=== PATIENT | female | born 1985 | race Caucasian/White ===

== ENCOUNTER 2018-10-05 11:18 | Emergency (ER) | payer BC, OTHER ==
[2018-10-05 11:48] VITALS: BP 134/76
--- NOTE | 2018-10-05 12:20 | UC ---
UC General HPI - HPI Summary HPI Summary: PT STATES "I HAVE HAD AN UPSET STOMACH" FOR 2 WEEKS. NO FEVER, N/V/D. STATES HAD A BM WITH TINY WHITE WORMS WHICH HER SISTER INSPECTED. SISTER TOLD HER IT WAS PIN WORMS, SISTERS SON HAD HX OF SAME. NO BLOOD IN STOOL OR FEVER. ALSO WANTS A URINE CHECK BECAUSE IT'S DARK AND MAYBE A LITTLE FOUL IN ODOR. NO FREQUENCY/URGENCY OR BURNING. TRIAGE NOTE STATED NAUSEA BUT PT DENIED TO MYSELF. - History of Current Complaint Chief Complaint: UCGI Stated Complaint: STOMACH ACHE Time Seen by Provider: 10/05/18 12:14 Hx Obtained From: Patient Hx Last Menstrual Period: 09/09/18 Pain Intensity: 0 Associated Signs & Symptoms: Negative: Abdominal Pain - Allergy/Home Medications Allergies/Adverse Reactions: Allergies Allergy/AdvReac Type Severity Reaction Status Date / Time No Known Allergies Allergy Verified 10/05/18 11:38 PMH/Surg Hx/FS Hx/Imm Hx Previously Healthy: Yes - Surgical History Surgical History: Yes Surgery Procedure, Year, and Place: - Social History Occupation: Employed Full-time Alcohol Use: Occasionally Substance Use Type: None Smoking Status (MU): Light Every Day Tobacco Smoker Type: Cigarettes Amount Used/How Often: 1/2 PPD Review of Systems All Other Systems Reviewed And Are Negative: Yes Constitutional: Positive: Negative Skin: Positive: Negative Eyes: Positive: Negative ENT: Positive: Negative Respiratory: Positive: Negative Cardiovascular: Positive: Negative Gastrointestinal: Negative: Abdominal Pain, Vomiting, Diarrhea, Nausea Genitourinary: Positive: Negative Motor: Positive: Negative Neurovascular: Positive: Negative Musculoskeletal: Positive: Negative Neurological: Positive: Negative Psychological: Positive: Negative Physical Exam Triage Information Reviewed: Yes Appearance: Well-Appearing Vital Signs: Initial Vital Signs Temp 98.7 F 10/05/18 11:41 Pulse 72 10/05/18 11:41 Resp 16 10/05/18 11:41 BP 134/76 10/05/18 11:41 Pulse Ox 100 10/05/18 11:41 Vital Signs Reviewed: Yes Eyes: Positive: Conjunctiva Clear ENT: Positive: Normal ENT inspection Neck: Positive: Supple, Nontender, No Lymphadenopathy Respiratory: Positive: Lungs clear, Normal breath sounds Cardiovascular: Positive: RRR, No Murmur Abdomen Description: Positive: Nontender, No Organomegaly, Soft. Negative: CVA Tenderness (R), CVA Tenderness (L), Distended, Guarding Bowel Sounds: Positive: Present Musculoskeletal: Positive: ROM Intact Neurological: Positive: Alert Psychological: Positive: Age Appropriate Behavior Skin Exam: Normal Diagnostics - Laboratory Diagnostic Studies Completed/Ordered: U/A=NEGATIVE. HCG=NEGATIVE Course/Dx - Differential Dx - Multi-Symptom Differential Diagnoses: Urinary Tract Infection, Other - PIN WORMS. NO CONCERN FOR ACUTE ABDOMEN - Diagnoses Provider Diagnosis: Pinworms Discharge - Sign-Out/Discharge Documenting (check all that apply): Patient Departure All imaging exams completed and their final reports reviewed: No Studies - Discharge Plan Condition: Stable Disposition: HOME Prescriptions: Albendazole 400 mg PO ONCE #4 tablet Patient Education Materials: Pinworm Infection (ED) Forms: *Work Release Referrals: HAYES Urbano [Medical Doctor] - As Soon As Possible - Billing Disposition and Condition Condition: STABLE Disposition: Home - Attestation Statements Provider Attestation: Per institutional requirements, I have reviewed the chart, however, I was not consulted specifically or made aware of this patient by the midlevel provider. I did not personally evaluate, interact with , or disposition this patient.
== END 2018-10-05 12:48 | disposition home or self-care (01) ==
LOC: UCCORT 11:18
DX: B80 Enterobiasis (principal); F17.210 Nicotine dependence, cigarettes, uncomplicated
CPT/HCPCS: 81003; 84702; 99202; G0463

== ENCOUNTER 2019-08-31 08:36 | Emergency (ER) | payer MEDICAID, OTHER ==
[2019-08-31 08:52] VITALS: BP 111/62
--- NOTE | 2019-08-31 09:07 | UC ---
Abdominal Pain Female HPI - HPI Summary HPI Summary: abdominal cramps x 1 day diffuse abdominal pain , pain is 4 out of 10 , better with Tylenol , worse with eating + nausea and vomiting since this morning, high fever, chills no urinary symptoms - History of Current Complaint Chief Complaint: UCGI Stated Complaint: ABDOMINAL PAIN, DIARRHEA Time Seen by Provider: 08/31/19 08:43 Hx Obtained From: Patient Hx Last Menstrual Period: 08/29/19 ?: No Onset/Duration: Gradual Onset, Lasting Days - 1, Still Present Timing: Constant Severity Initially: Moderate Severity Currently: Moderate Pain Intensity: 4 Location: Diffuse Radiates: No Character: Cramping Aggravating Factor(s): Food Alleviating Factor(s): Medications, NPO Associated Signs and Symptoms: Positive: Fever, Decreased Appetite, Nausea, Vomiting, Diarrhea. Negative: Diaphoresis, Cough, Chest Pain, Dizzy, Back Pain , Constipation, Blood in Stool, Urinary Symptoms, Vaginal Bleeding, Vaginal Discharge Allergies/Adverse Reactions: Allergies Allergy/AdvReac Type Severity Reaction Status Date / Time No Known Allergies Allergy Verified 08/31/19 08:44 Home Medications: Home Medications Ibuprofen TAB* [Advil TAB*] 400 mg PO Q6H PRN 08/31/19 [History Confirmed ] Oral Contraceptive 1 tab PO DAILY 08/31/19 [History] PMH/Surg Hx/FS Hx/Imm Hx Respiratory History: Asthma - Surgical History Surgical History: Yes Surgery Procedure, Year, and Place: - Family History Known Family History: Negative: Diabetes - Social History Alcohol Use: Occasionally Substance Use Type: None Smoking Status (MU): Light Every Day Tobacco Smoker Type: Cigarettes Amount Used/How Often: 1/2 PPD Have You Smoked in the Last Year: Yes Household Exposure Type: Cigarettes Review of Systems All Other Systems Reviewed And Are Negative: Yes Constitutional: Positive: Fever, Chills, Fatigue Skin: Positive: Negative Eyes: Positive: Negative ENT: Positive: Negative Respiratory: Positive: Negative Cardiovascular: Positive: Negative Gastrointestinal: Positive: Abdominal Pain, Vomiting, Diarrhea, Nausea Genitourinary: Positive: Negative Is Patient Immunocompromised?: No Physical Exam Triage Information Reviewed: Yes Appearance: Well-Appearing, No Pain Distress, Well-Nourished Vital Signs: Initial Vital Signs Temp 98.3 F 08/31/19 08:46 Pulse 83 08/31/19 08:46 Resp 16 08/31/19 08:46 BP 111/62 08/31/19 08:46 Pulse Ox 98 08/31/19 08:46 Vital Signs Reviewed: Yes Eye Exam: Normal Eyes: Positive: Conjunctiva Clear ENT: Positive: Normal ENT inspection, Hearing grossly normal, Pharynx normal Neck exam: Normal Neck: Positive: Supple, Nontender, No Lymphadenopathy Respiratory: Positive: Chest non-tender, Lungs clear, Normal breath sounds Cardiovascular: Positive: RRR, No Murmur, Pulses Normal Abdomen Description: Positive: Nontender, Soft. Negative: CVA Tenderness (R), CVA Tenderness (L) Bowel Sounds: Positive: Hypoactive Skin Exam: Normal Abd Pain Female Course/Dx - Differential Dx/Diagnosis Provider Diagnosis: Gastroenteritis Discharge ED - Sign-Out/Discharge Documenting (check all that apply): Patient Departure All imaging exams completed and their final reports reviewed: No Studies - Discharge Plan Condition: Stable Disposition: HOME Patient Education Materials: Gastroenteritis (DC) Forms: *Work Release Referrals: No Primary Care Phys,NOPCP [Primary Care Provider] - If Needed - Billing Disposition and Condition Condition: STABLE Disposition: Home
== END 2019-08-31 09:03 | disposition home or self-care (01) ==
LOC: UCCORT 08:36
DX: K52.9 Noninfective gastroenteritis and colitis, unspecified (principal); F17.210 Nicotine dependence, cigarettes, uncomplicated
CPT/HCPCS: 99211; G0463

== ENCOUNTER 2019-11-12 08:13 | Emergency (ER) | payer BC, MEDICAID ==
[2019-11-12 08:48] VITALS: BP 100/61
--- NOTE | 2019-11-12 08:51 | UC ---
Ear Complaint HPI - HPI Summary HPI Summary: 34 year old female with ear pain . Right ear pain and drainage since yesterday. Has had a cough and runny nose recently. No fever. she has had some discomfort in the right ear. A muffled sensation at times. Intermittent vertigo at times. No medication prior to arrival. She recently has had runny nose and nasal congestion over the past week or so. No other concerns. No fevers. No difficulty breathing. No chest pain or palpitations. - History of Current Complaint Chief Complaint: UCEar Stated Complaint: RIGHT EAR RUNNY NOSE COUGH Time Seen by Provider: 11/12/19 08:50 Hx Obtained From: Patient Hx Last Menstrual Period: 10/30/19 Pain Intensity: 7 - Allergies/Home Medications Allergies/Adverse Reactions: Allergies Allergy/AdvReac Type Severity Reaction Status Date / Time No Known Allergies Allergy Verified 11/12/19 08:39 Home Medications: Home Medications Ibuprofen TAB* [Advil TAB*] 400 mg PO Q6H PRN 08/31/19 [History Confirmed ] Amoxicillin PO (*) [Amoxicillin 875 MG (*)] 875 mg PO BID #20 tab 11/12/19 [Rx] PMH/Surg Hx/FS Hx/Imm Hx Previously Healthy: Yes - Surgical History Surgical History: Yes Surgery Procedure, Year, and Place: - Family History Known Family History: Negative: Cardiac Disease, Diabetes - Social History Alcohol Use: Rare Substance Use Type: None Smoking Status (MU): Light Every Day Tobacco Smoker Type: Cigarettes Amount Used/How Often: 5 cigs a day Have You Smoked in the Last Year: Yes Household Exposure Type: Cigarettes Review of Systems All Other Systems Reviewed And Are Negative: Yes Constitutional: Positive: Fever ENT: Positive: Ear Ache Physical Exam Triage Information Reviewed: Yes Appearance: No Pain Distress Vital Signs: Initial Vital Signs Temp 98.6 F 11/12/19 08:39 Pulse 83 11/12/19 08:39 Resp 18 11/12/19 08:39 BP 100/61 11/12/19 08:39 Pulse Ox 97 11/12/19 08:39 Vital Signs Reviewed: Yes Eye Exam: Normal ENT Exam: Normal ENT: Positive: TM bulging, TM dull, TM red - R ear. no perforation or discharge noted no ear canal swelling Dental Exam: Normal Neck exam: Normal Neck: Positive: 1 Respiratory Exam: Normal Cardiovascular Exam: Normal Abdominal Exam: Normal Musculoskeletal Exam: Normal Neurological Exam: Normal Psychological Exam: Normal Skin Exam: Normal Ear Complaint Course/Dx - Differential Dx/Diagnosis Differential Diagnosis/HQI/PQRI: Foreign Body, Otitis Externa, Otitis Media, Perforated TM, URI Provider Diagnosis: AOM (acute otitis media) Discharge ED - Sign-Out/Discharge Documenting (check all that apply): Patient Departure All imaging exams completed and their final reports reviewed: No Studies - Discharge Plan Condition: Good Disposition: HOME Prescriptions: Amoxicillin PO (*) [Amoxicillin 875 MG (*)] 875 mg PO BID #20 tab Patient Education Materials: Ear Infection (ED) Referrals: No Primary Care Phys,NOPCP [Primary Care Provider] - 3 Days - Billing Disposition and Condition Condition: GOOD Disposition: Home
== END 2019-11-12 09:05 | disposition home or self-care (01) ==
LOC: UCCORT 08:13
DX: H66.91 Otitis media, unspecified, right ear (principal); F17.210 Nicotine dependence, cigarettes, uncomplicated
CPT/HCPCS: 99212; G0463

== ENCOUNTER 2020-01-13 09:56 | Emergency (ER) | payer BC ==
[2020-01-13 10:08] VITALS: BP 115/76
== END 2020-01-13 11:04 | disposition home or self-care (01) ==
LOC: UCCORT 09:56